=== PATIENT | female | born 1945 | race Caucasian/White ===

== ENCOUNTER 2025-05-26 13:27 | Outpatient (CLI) | payer MEDICARE | END 2025-05-26 13:28 | disposition home or self-care (01) | LOC: CSHMAMMO 13:27 | PROVIDERS: ATTEND Specialist | DX: Z08 Encounter for follow-up examination after completed treatment for malignant neoplasm (principal); Z85.3 Personal history of malignant neoplasm of breast | CPT/HCPCS: 76642; 77066; G0279 ==